=== PATIENT | female | born 1995 | race Caucasian/White ===

== ENCOUNTER 2019-07-28 18:46 | Inpatient (IN) | payer BC ==
[2019-07-28] MEDS ORDERED: Sodium Chloride 0.9% 10 ML Syringe FLUSH PRN ×2 (21:02→21:54)
[2019-07-28] MEDS ORDERED: Ondansetron 4 MG/2 ML SDV IV PRN (21:02)
[2019-07-28] MEDS ORDERED: Acetaminophen 325 MG Tab PO PRN (21:02)
--- NOTE | 2019-07-28 21:20 | PCM.LDHP ---
L&D History of Present Illness - General Date of Service: 07/28/19 Admit Problem/Dx: Patient Status Order with Admit Dx/Problem 07/28/19 21:03 Patient Status [ADT] Routine Admission Diagnosis/Problem Admission Diagnosis/Problem Source of Information: Patient History Limitations: Reports: No Limitations - Related Data Home Medications: Home Meds Ferrous Sulfate 325 mg PO DAILY 07/28/19 [History] PNV95/Ferrous Fumarate/FA [ Tablet] 1 tab PO DAILY 07/28/19 [History] H&P Review of Systems - Review of Systems: Review Of Systems: See Below General: Reports: No Symptoms HEENT: Reports: No Symptoms Pulmonary: Reports: No Symptoms Cardiovascular: Reports: No Symptoms Gastrointestinal: Reports: No Symptoms Genitourinary: Reports: No Symptoms Musculoskeletal: Reports: No Symptoms Skin: Reports: No Symptoms Psychiatric: Reports: No Symptoms Neurological: Reports: No Symptoms Hematologic/Lymphatic: Reports: No Symptoms Immunologic: Reports: No Symptoms L&D Exam - Exam Exam: See Below - Vital Signs Vital Signs: Last Vital Signs Temp 37.5 C 07/28/19 19:00 Pulse 89 07/28/19 19:00 Resp 16 07/28/19 19:00 BP 110/69 07/28/19 19:00 Pulse Ox 99 07/28/19 19:00 - OB Specific Contraction Duration (sec): 30 Contraction Frequency (min): 2-4 Contraction Intensity: Mild Movement: Active Heart Tones: Present Heart Rate (FHR) Variability: Moderate (6-25 bmp) Presentation: Vertex - Tse Score Tse Score Cervix Position: Midposition Tse Score Consistency: Soft Tse Score Effacement: 51-70% Tse Score Dilation: 1-2 cm Tse Score Infant's Station: -1 ,0 Tse Score Total: 8 - Exam General: Alert, Oriented, Cooperative HEENT: PERRLA, Conjunctiva Clear, EACs Clear, EOMI, Hearing Intact, Mucosa Moist & [place], Nares Patent, Normal Nasal Septum, Posterior Pharynx Clear, TMs Clear Neck: Supple, Trachea Midline Lungs: Clear to Auscultation, Normal Respiratory Effort Cardiovascular: Regular Rate, Regular Rhythm GI/Abdominal Exam: Normal Bowel Sounds, Soft, Non-Tender, No Organomegaly, No Distention, No Abnormal Bruit, No Mass, Pelvis Stable Rectal Exam: Normal Exam, Normal Rectal Tone Genitourinary: Normal external exam, Normal bimanual exam, Normal speculum exam , Cervical dilitation Back Exam: Normal Inspection, Full Range of Motion Extremities: Normal Inspection, Normal Range of Motion, Non-Tender, No Pedal Edema, Normal Capillary Refill Skin: Warm, Dry, Intact Neurological: Cranial Nerves Intact, Reflexes Equal Bilateral DTR: 2+: Patella (L), Patella (R) Psychiatric: Alert, Normal Affect, Normal Mood - Patient Data Lab Results Last 24 hrs: Laboratory Results - last 24 hr 07/28/19 07/28/19 Range/Units 19:30 19:31 Urine Color Yellow (YELLOW) Urine Appearance Cloudy A (CLEAR) Urine pH 7.0 (5.0-8.0) Ur Specific [place] 1.020 (1.008-1.030) Urine Protein Trace H (NEGATIVE) mg/dL Urine Glucose (UA) Negative (NEGATIVE) mg/dL Urine Ketones 15 H (NEGATIVE) mg/dL Urine Occult Blood Negative (NEGATIVE) Urine Nitrite Negative (NEGATIVE) Urine Bilirubin Negative (NEGATIVE) Urine Urobilinogen 0.2 (0.2-1.0) EU/dL Ur Leukocyte Esterase Trace H (NEGATIVE) Urine RBC 0-5 (0-5) Urine WBC 5-10 H (0-5) Ur Epithelial Cells Many Amorphous Sediment Few Urine Bacteria Many Urine Mucus Few Membrane Rupture Negative (NEGATIVE) - Problem List (1) SNOMED Code(s): 85788473 ICD Code: Z34.90 - ENCNTR FOR SUPRVSN OF NORMAL , UNSP, UNSP TRIMESTER Status: Acute Current Visit: Yes Qualifiers: Weeks of gestation: 39 weeks Qualified Code(s): Z3A.39 - 39 weeks gestation of (2) SROM (spontaneous rupture of membranes) SNOMED Code(s): 520382939 ICD Code: [id number] - Status: Acute Current Visit: Yes Problem List Initiated/Reviewed/Updated: Yes Orders Last 24hrs: Active Orders 24 hr Category Date Time Status Patient Status [ADT] Routine ADT 07/28/19 21:03 Ordered Ambulate [RC] PER UNIT ROUTINE Care 07/28/19 21:02 Ordered Communication Order [RC] ASDIRECTED Care 07/28/19 21:03 Ordered Heart Tones [RC] PER UNIT ROUTINE Care 07/28/19 21:03 Ordered Non Stress Test [RC] Click to Edit Care 07/28/19 21:03 Ordered Notify Provider Vital Signs [RC] PRN Care 07/28/19 21:02 Ordered Notify Provider [RC] PRN Care 07/28/19 21:03 Ordered OB Check [OM.PC] Click to Edit Care 07/28/19 19:30 Ordered Up ad Milli [RC] ASDIRECTED Care 07/28/19 21:02 Ordered VTE/DVT Education [RC] Click to Edit Care 07/28/19 21:07 Ordered Vital Signs [RC] PER UNIT ROUTINE Care 07/28/19 21:03 Ordered CBC WITH AUTO DIFF [HEME] Routine Lab 07/28/19 21:02 Ordered DRUG SCREEN, URINE [URCHEM] Routine Lab 07/28/19 21:02 Ordered Acetaminophen [Tylenol] Med 07/28/19 21:02 Ordered 650 mg PO Q4H PRN Ondansetron [Zofran] Med 07/28/19 21:02 Ordered 4 mg IV Q4H PRN Sodium Chloride 0.9% [Saline Flush] Med 07/28/19 21:02 Ordered 10 ml FLUSH ASDIRECTED PRN DVT/VTE Prophylaxis Reflex [OM.PC] Routine Oth 07/28/19 21:02 Ordered Saline Lock Insert [OM.PC] Routine Oth 07/28/19 21:03 Ordered Resuscitation Status Routine Resus Stat 07/28/19 21:02 Ordered Medication Orders Acetaminophen (Tylenol) 650 mg PO Q4H PRN PRN Reason: Pain (Mild 1-3) and fever Ondansetron HCl (Zofran) 4 mg IV Q4H PRN PRN Reason: Nausea/Vomiting Sodium Chloride (Saline Flush) 10 ml FLUSH ASDIRECTED PRN PRN Reason: Keep Vein Open Assessment/Plan Comment:: 07/28/2019 24 yo here at 39 4/7 weeks gestation She believes around 1545 that she had a gush of fluid, and then again around 1845 so she came in to labor and delivery Amnisure on arrival was negative, but she was denita very regular SVE-2-3/75/-1 FHTs category one Contractions every 2-3 minutes and getting stronger Plan- Will admit Continue to monitor for active labor Continue to monitor FHTs May eat a regular diet May be up ad milli May tub bath or shower Pain management per patient request If no progress may start Pitocin per protocol Plan and anticipate a vaginal delivery
[2019-07-28] MEDS ORDERED: Misoprostol 50 MCG (1/2 of 100 MCG) Tab VAG ONE (21:47)
[2019-07-28] MEDS ORDERED: Misoprostol 50 MCG (1/2 of 100 MCG) Tab ONE (21:49)
[2019-07-28] MEDS ORDERED: Naloxone 0.4 MG/ML SDV IVPUSH PRN (21:54)
[2019-07-28] MEDS ORDERED: Lactated Ringers 1,000 ML IV ONE (21:54)
[2019-07-28] MEDS ORDERED: diphenhydrAMINE 50 MG/ML SDV IVPUSH PRN ×2 (21:54)
[2019-07-28] MEDS ORDERED: ePHEDrine 50 MG/ML SDV IVPUSH PRN ×2 (21:54)
[2019-07-28] MEDS ORDERED: Ropivacaine 200 MG in Premix Bag 1 BAG EPIDUR SCH (22:00)
[2019-07-29] MEDS ORDERED: Lactated Ringers 500 ML IV ONE (01:26)
[2019-07-29] MEDS ORDERED: Lactated Ringers 1,000 ML IV SCH (02:15)
[2019-07-29] MEDS ORDERED: Lidocaine 1% 50 ML MDV ONE (05:03)
--- NOTE | 2019-07-29 05:09 | PCM.PNLD ---
Labor Progress Note - VS & Meds Vital Signs: Last Vital Signs Temp 36.8 C 07/29/19 04:47 Pulse 61 07/29/19 04:47 Resp 18 07/29/19 04:47 BP 119/61 07/29/19 04:47 Pulse Ox 99 07/29/19 04:47 Active Medications: Current Medications Acetaminophen (Tylenol) 650 mg PO Q4H PRN PRN Reason: Pain (Mild 1-3) and fever Diphenhydramine HCl (Benadryl) 25 mg IVPUSH Q6H PRN PRN Reason: Itching Diphenhydramine HCl (Benadryl) 50 mg IVPUSH Q6H PRN PRN Reason: Itching Ephedrine Sulfate (Ephedrine Sulfate) 10 mg IVPUSH ASDIRECTED PRN PRN Reason: Hypotension Ropivacaine 200 mg/ Premix 100 mls @ 0 mls/hr EPIDUR ASDIRECTED FLORINDA Oxytocin/Sodium Chloride (Pitocin In Ns 20 Units/1,000 Ml) 20 unit in 1,000 mls @ 6 mls/hr IV TITRATE FLORINDA; Protocol Lactated Ringer's (Ringers, Lactated) 1,000 mls @ 100 mls/hr IV ASDIRECTED FLORINDA Last Admin: 07/29/19 02:00 Dose: 100 mls/hr Naloxone HCl (Narcan) 0.1 mg IVPUSH ASDIRECTED PRN PRN Reason: Oversedation Ondansetron HCl (Zofran) 4 mg IV Q4H PRN PRN Reason: Nausea/Vomiting Sodium Chloride (Saline Flush) 10 ml FLUSH ASDIRECTED PRN PRN Reason: Keep Vein Open Sodium Chloride (Saline Flush) 10 ml FLUSH ASDIRECTED PRN PRN Reason: Keep Vein Open Discontinued Medications Ephedrine Sulfate (Ephedrine Sulfate) 10 mg IVPUSH ASDIRECTED PRN PRN Reason: Hypotension Lactated Ringer's (Ringers, Lactated) 1,000 mls @ 999 mls/hr IV .BOLUS ONE Stop: 07/28/19 22:54 Lactated Ringer's (Ringers, Lactated) 500 mls @ 999 mls/hr IV BOLUS ONE Stop: 07/29/19 01:56 Last Admin: 07/29/19 01:30 Dose: 999 mls/hr Lidocaine HCl (Xylocaine 1%) Confirm Administered Dose 50 ml .ROUTE .STK-MED ONE Stop: 07/29/19 05:04 Misoprostol (Cytotec) 50 mcg VAG ONETIME ONE Stop: 07/28/19 21:48 Last Admin: 07/28/19 21:50 Dose: 50 mcg Misoprostol (Cytotec) Confirm Administered Dose 50 mcg .ROUTE .STK-MED ONE Stop: 07/28/19 21:50 Last Admin: 07/28/19 21:53 Dose: Not Given - Uterine Contractions Uterine Monitoring Mode: External [place] Contraction Frequency (min): 1-2 Contraction Duration (sec): 50-80 Contraction Intensity: Moderate to Strong Uterine Resting Tone: Soft - Monitoring Heart Rate (FHR) Variability: Moderate (6-25 bmp) - Vaginal Exam Dilation (cm): 7-8 Effacement (Percent): 90 Cervical Position: Anterior Sterile Vaginal Exam Performed By: Angelita Cotton - Labor Progress (Free Text) Labor Progress: 07/29/2019 Patient has progressed nicely SVE-7-8/90/-1 FHTs category one Pain controlled with tub, position change, and nitrous at this time supportive and at bedside Plan- Continue to monitor labor Continue to monitor FHTs Continue nitrous and position change for pain management Plan and anticipate a vaginal
[2019-07-29] MEDS ORDERED: fentaNYL 100 MCG/2 ML SDV IVPUSH STA (06:30)
[2019-07-29] MEDS ORDERED: Hydrocortisone 2.5% Crm 30 GM Tube TOP PRN (06:48)
[2019-07-29] MEDS ORDERED: Benzocaine 20% Top Spray 56 GM Bottle TOP ONE (06:48)
[2019-07-29] MEDS ORDERED: Ibuprofen 200 MG Tab, 24 Tab Bulk Bottle PO PRN (06:48)
[2019-07-29] MEDS ORDERED: Acetaminophen 325 MG Tab, 50 Tab Bulk Bottle PO PRN (06:48)
[2019-07-29] MEDS ORDERED: Witch Hazel Medicated Pads 100/Jar TOP PRN (06:48)
[2019-07-29] MEDS ORDERED: Lanolin 100% Cream 40 GM Tube TOP PRN (06:48)
[2019-07-29] MEDS ORDERED: Docusate Sodium 100 MG Cap PO PRN (06:48)
--- NOTE | 2019-07-29 07:40 | PCM.DEL ---
L & D Note - General Info Date of Service: 07/29/19 - Delivery Note Labor: Spontaneous Cervical Ripening Method: Misoprostil Delivery Outcome: Livebirth Infant Delivery Method: Spontaneous Vaginal Delivery-Single Delivery Mode: Spontaneous Presentation: Left Occiput Anterior (MARIUSZ) Nuchal Cord: None Anesthesia Type: Nitrous Oxide Amniotic Fluid Description: scant amount seen during delivery Episiotomy Type: None Laceration: None, Other (small torn skin tag on left vaginal intriotus area) Placenta: Intact, Spontaneous Cord: 3 Vessels Estimated Blood Loss: 350 Resuscitation Needed: No : Bulb Syringe, Stimulated, Warmed, [place] Used Second Stage Interventions: Reports: Second Nurse Assessed Progress of Descent, Second Nurse Reviewed Contraction Pattern, Second Nurse Reviewed Heart Tones, Encouragement Given, Laboring Down, Pushing Effectively, Pushing, Knee Chest Position, Pushing, McRobert's Position Delivery Comments (Free Text/Narrative):: 07/29/2019 24 yo delivered a viable male at 39 5/7 weeks gestation in MARIUSZ position at 0622 on 07/29/2019 over an intact perineum. was then placed up on mothers abdomen on prewarmed blanket. Infant was dried, stimulated, and began to cry vigorously and pink in color. APGARS-9/9, weight-8lbs 8oz, length- 20 inches. Delayed cord clamping was done for approximately two minutes and then cord was double clamped by provider and father of infant cut the cord. Placenta then came intact, in dirty [place] presentation, three vessel cord, EBL- 350ml. No lacerations were noted of cervix, vagina, rectum, small skin tag was slightly skid nenita torn by the left vaginal introitus, but no other lacerations noted of the perineum. now skin to skin with mother and both stable in the labor and delivery room. Stages- [id number] - General Info Date of Service: 07/29/19 Functional Status: Reports: Pain Controlled - Review of Systems General: Reports: No Symptoms HEENT: Reports: No Symptoms Pulmonary: Reports: No Symptoms Cardiovascular: Reports: No Symptoms Gastrointestinal: Reports: No Symptoms Genitourinary: Reports: No Symptoms Musculoskeletal: Reports: No Symptoms Skin: Reports: No Symptoms Neurological: Reports: No Symptoms Psychiatric: Reports: No Symptoms - Patient Data Vitals - Most Recent: Last Vital Signs Temp 37.1 C 07/29/19 06:45 Pulse 71 07/29/19 06:45 Resp 18 07/29/19 06:45 BP 118/47 L 07/29/19 06:45 Pulse Ox 98 07/29/19 06:45 Weight - Most Recent: 74.389 kg Lab Results Last 24 Hours: Laboratory Results - last 24 hr 07/28/19 07/28/19 07/28/19 Range/Units 19:30 19:31 21:02 WBC 9.7 (4.5-11.0) K/uL RBC 4.36 (3.30-5.50) M/uL Hgb 13.4 (12.0-15.0) g/dL Hct 41.3 (36.0-48.0) % MCV 95 (80-98) fL MCH 31 (27-31) pg MCHC 32 (32-36) % Plt Count 193 (150-400) K/uL Neut % (Auto) 69 H (36-66) % Lymph % (Auto) 22 L (24-44) % [place] % (Auto) 9 H (2-6) % Eos % (Auto) 0 L (2-4) % Baso % (Auto) 0 (0-1) % Urine Color Yellow (YELLOW) Urine Appearance Cloudy A (CLEAR) Urine pH 7.0 (5.0-8.0) Ur Specific [place] 1.020 (1.008-1.030) Urine Protein Trace H (NEGATIVE) mg/dL Urine Glucose (UA) Negative (NEGATIVE) mg/dL Urine Ketones 15 H (NEGATIVE) mg/dL Urine Occult Blood Negative (NEGATIVE) Urine Nitrite Negative (NEGATIVE) Urine Bilirubin Negative (NEGATIVE) Urine Urobilinogen 0.2 (0.2-1.0) EU/dL Ur Leukocyte Esterase Trace H (NEGATIVE) Urine RBC 0-5 (0-5) Urine WBC 5-10 H (0-5) Ur Epithelial Cells Many Amorphous Sediment Few Urine Bacteria Many Urine Mucus Few Membrane Rupture Negative (NEGATIVE) Urine Opiates Screen (NEGATIVE) Ur Oxycodone Screen (NEGATIVE) Urine Methadone Screen (NEGATIVE) Ur Propoxyphene Screen (NEGATIVE) Ur Barbiturates Screen (NEGATIVE) Ur Tricyclics Screen (NEGATIVE) Ur Phencyclidine Scrn (NEGATIVE) Ur Amphetamine Screen (NEGATIVE) U Methamphetamines Scrn (NEGATIVE) Urine MDMA Screen (NEGATIVE) U Benzodiazepines Scrn (NEGATIVE) U Cocaine Metab Screen (NEGATIVE) U Marijuana (THC) Screen (NEGATIVE) 07/28/19 Range/Units 21:02 WBC (4.5-11.0) K/uL RBC (3.30-5.50) M/uL Hgb (12.0-15.0) g/dL Hct (36.0-48.0) % MCV (80-98) fL MCH (27-31) pg MCHC (32-36) % Plt Count (150-400) K/uL Neut % (Auto) (36-66) % Lymph % (Auto) (24-44) % [place] % (Auto) (2-6) % Eos % (Auto) (2-4) % Baso % (Auto) (0-1) % Urine Color (YELLOW) Urine Appearance (CLEAR) Urine pH (5.0-8.0) Ur Specific [place] (1.008-1.030) Urine Protein (NEGATIVE) mg/dL Urine Glucose (UA) (NEGATIVE) mg/dL Urine Ketones (NEGATIVE) mg/dL Urine Occult Blood (NEGATIVE) Urine Nitrite (NEGATIVE) Urine Bilirubin (NEGATIVE) Urine Urobilinogen (0.2-1.0) EU/dL Ur Leukocyte Esterase (NEGATIVE) Urine RBC (0-5) Urine WBC (0-5) Ur Epithelial Cells Amorphous Sediment Urine Bacteria Urine Mucus Membrane Rupture (NEGATIVE) Urine Opiates Screen Negative (NEGATIVE) Ur Oxycodone Screen Negative (NEGATIVE) Urine Methadone Screen Negative (NEGATIVE) Ur Propoxyphene Screen Negative (NEGATIVE) Ur Barbiturates Screen Negative (NEGATIVE) Ur Tricyclics Screen Negative (NEGATIVE) Ur Phencyclidine Scrn Negative (NEGATIVE) Ur Amphetamine Screen Negative (NEGATIVE) U Methamphetamines Scrn Negative (NEGATIVE) Urine MDMA Screen Negative (NEGATIVE) U Benzodiazepines Scrn Negative (NEGATIVE) U Cocaine Metab Screen Negative (NEGATIVE) U Marijuana (THC) Screen Negative (NEGATIVE) Med Orders - Current: Current Medications Acetaminophen (Tylenol) 650 mg PO Q4H PRN PRN Reason: Pain (Mild 1-3) and fever Acetaminophen (Tylenol Bulk Bottle) 0 mg PO Q4H PRN PRN Reason: Pain Diphenhydramine HCl (Benadryl) 25 mg IVPUSH Q6H PRN PRN Reason: Itching Diphenhydramine HCl (Benadryl) 50 mg IVPUSH Q6H PRN PRN Reason: Itching Docusate Sodium (Colace) 100 mg PO BID PRN PRN Reason: Constipation Emollient Ointment (Lansinoh Hpa) 40 gm TOP ASDIRECTED PRN PRN Reason: Pain Ephedrine Sulfate (Ephedrine Sulfate) 10 mg IVPUSH ASDIRECTED PRN PRN Reason: Hypotension Hydrocortisone (Hydrocortisone 2.5% Crm) 1 gm TOP ASDIRECTED PRN PRN Reason: Other Ropivacaine 200 mg/ Premix 100 mls @ 0 mls/hr EPIDUR ASDIRECTED FLORINDA Oxytocin/Sodium Chloride (Pitocin In Ns 20 Units/1,000 Ml) 20 unit in 1,000 mls @ 6 mls/hr IV TITRATE FLORINDA; Protocol Last Admin: 07/29/19 06:36 Dose: 999 mls/hr Lactated Ringer's (Ringers, Lactated) 1,000 mls @ 100 mls/hr IV ASDIRECTED FLORINDA Last Admin: 07/29/19 02:00 Dose: 100 mls/hr Ibuprofen (Motrin Bulk Bottle) 600 mg PO Q6H PRN PRN Reason: Pain Naloxone HCl (Narcan) 0.1 mg IVPUSH ASDIRECTED PRN PRN Reason: Oversedation Ondansetron HCl (Zofran) 4 mg IV Q4H PRN PRN Reason: Nausea/Vomiting Sodium Chloride (Saline Flush) 10 ml FLUSH ASDIRECTED PRN PRN Reason: Keep Vein Open Sodium Chloride (Saline Flush) 10 ml FLUSH ASDIRECTED PRN PRN Reason: Keep Vein Open Witch Mikala (Tucks) 1 pad TOP ASDIRECTED PRN PRN Reason: Pain Discontinued Medications Benzocaine (Yscf-M-Jerpbrr 20% [place]) 0 gm TOP ONETIME ONE Stop: 07/29/19 06:49 Ephedrine Sulfate (Ephedrine Sulfate) 10 mg IVPUSH ASDIRECTED PRN PRN Reason: Hypotension Fentanyl (Sublimaze) 50 mcg IVPUSH ONETIME STA Stop: 07/29/19 06:31 Last Admin: 07/29/19 06:36 Dose: 50 mcg Lactated Ringer's (Ringers, Lactated) 1,000 mls @ 999 mls/hr IV .BOLUS ONE Stop: 07/28/19 22:54 Last Admin: 07/29/19 07:29 Dose: Not Given Lactated Ringer's (Ringers, Lactated) 500 mls @ 999 mls/hr IV BOLUS ONE Stop: 07/29/19 01:56 Last Admin: 07/29/19 01:30 Dose: 999 mls/hr Lidocaine HCl (Xylocaine 1%) Confirm Administered Dose 50 ml .ROUTE .STK-MED ONE Stop: 07/29/19 05:04 Last Admin: 07/29/19 07:29 Dose: Not Given Misoprostol (Cytotec) 50 mcg VAG ONETIME ONE Stop: 07/28/19 21:48 Last Admin: 07/28/19 21:50 Dose: 50 mcg Misoprostol (Cytotec) Confirm Administered Dose 50 mcg .ROUTE .STK-MED ONE Stop: 07/28/19 21:50 Last Admin: 07/28/19 21:53 Dose: Not Given - Exam General: Alert, Oriented, Cooperative HEENT: Pupils Equal, Pupils Reactive, EOMI, Mucous Membr. Moist/[place] Neck: Supple Lungs: Clear to Auscultation, Normal Respiratory Effort Cardiovascular: Regular Rate, Regular Rhythm GI/Abdominal Exam: Normal Bowel Sounds, Soft, Non-Tender, No Organomegaly, No Distention, No Abnormal Bruit, No Mass, Pelvis Stable (Female) Exam: Normal External Exam, Normal Speculum Exam, Normal Bimanual Exam, Enlarged Uterus, Vaginal Bleeding Back Exam: Normal Inspection, Full Range of Motion Extremities: Normal Inspection, Normal Range of Motion, Non-Tender, No Pedal Edema, Normal Capillary Refill Skin: Warm, Dry, Intact Neurological: No New Focal Deficit Psy/Mental Status: Alert, Normal Affect, Normal Mood - Problem List & Annotations (1) SNOMED Code(s): 99910051 Code(s): Z34.90 - ENCNTR FOR SUPRVSN OF NORMAL , UNSP, UNSP TRIMESTER Status: Acute Current Visit: Yes Qualifiers: Weeks of gestation: 39 weeks Qualified Code(s): Z3A.39 - 39 weeks gestation of (2) SROM (spontaneous rupture of membranes) SNOMED Code(s): 954673682 Code(s): QHD3160 - Status: Acute Current Visit: Yes (3) (infant) SNOMED Code(s): 503175847 Code(s): Z78.9 - OTHER SPECIFIED HEALTH STATUS Status: Acute Current Visit: Yes (4) Prolonged artificial rupture of membranes SNOMED Code(s): 804973425, 132648966 Code(s): O75.5 - DELAYED DELIVERY AFTER ARTIFICIAL RUPTURE OF MEMBRANES Status: Acute Current Visit: Yes (5) Vaginal delivery SNOMED Code(s): 703050493 Code(s): O80 - ENCOUNTER FOR FULL-TERM UNCOMPLICATED DELIVERY Status: Acute Current Visit: Yes - Problem List Review Problem List Initiated/Reviewed/Updated: Yes - My Orders Last 24 Hours: My Active Orders 07/28/19 19:30 OB Check [OM.PC] Click to Edit 07/28/19 21:02 Ambulate [RC] PER UNIT ROUTINE Notify Provider Vital Signs [RC] PRN Up ad [place] [RC] ASDIRECTED Acetaminophen [Tylenol] 650 mg PO Q4H PRN Ondansetron [Zofran] 4 mg IV Q4H PRN Sodium Chloride 0.9% [Saline Flush] 10 ml FLUSH ASDIRECTED PRN DVT/VTE Prophylaxis Reflex [OM.PC] Routine Resuscitation Status Routine 07/28/19 21:03 Patient Status [ADT] Routine Heart Tones [RC] PER UNIT ROUTINE Notify Provider [RC] PRN Vital Signs [RC] PER UNIT ROUTINE Saline Lock Insert [OM.PC] Routine 07/28/19 21:07 VTE/DVT Education [RC] Click to Edit 07/28/19 21:54 Naloxone [Narcan] 0.1 mg IVPUSH ASDIRECTED PRN Sodium Chloride 0.9% [Saline Flush] 10 ml FLUSH ASDIRECTED PRN diphenhydrAMINE [Benadryl] 25 mg IVPUSH Q6H PRN diphenhydrAMINE [Benadryl] 50 mg IVPUSH Q6H PRN ePHEDrine [ePHEDrine sulfate] 10 mg IVPUSH ASDIRECTED PRN 07/28/19 21:55 Communication Order [RC] Per Unit Routine Communication Order [RC] Per Unit Routine Communication Order [RC] Per Unit Routine Communication Order [RC] Per Unit Routine Communication Order [RC] ROUTINE Communication Order [RC] ROUTINE Local Anesthetic Infusion Pump [RC] ASDIRECTED Nitrous Oxide Delivery [RC] ASDIRECTED Oxygen Therapy [RC] ASDIRECTED Oxygen Therapy [RC] ASDIRECTED Peripheral IV Care [RC] . DIRECTED Pulse Oximetry [RC] ASDIRECTED Pulse Oximetry [RC] ASDIRECTED Vital Signs [RC] PER UNIT ROUTINE Vital Signs [RC] PER UNIT ROUTINE Epidural Catheter Management [OM.PC] Routine Epidural Catheter Management [OM.PC] Urgent Medication Discontinuation Instructions [OM.PC] Routine Peripheral IV Insertion Pediatric [OM.PC] Routine 07/28/19 22:00 Insert Urinary Catheter [OM.PC] ASDIRECTED Oxytocin/Normal Saline [Pitocin in NS 20 Units/1,000 ML] 20 unit in 1,000 ml IV TITRATE Ropivacaine [Naropin 0.2%] 200 mg Premix Bag 1 bag EPIDUR ASDIRECTED 07/29/19 02:15 Lactated Ringers [Ringers, Lactated] 1,000 ml IV ASDIRECTED 07/29/19 06:48 Acetaminophen [Tylenol Bulk Bottle] See Dose Instructions PO Q4H PRN Docusate Sodium [Colace] 100 mg PO BID PRN Hydrocortisone [Hydrocortisone 2.5% Crm] 1 gm TOP ASDIRECTED PRN Ibuprofen [Motrin Bulk Bottle] 600 mg PO Q6H PRN Lanolin [Lansinoh HPA] 40 gm TOP ASDIRECTED PRN Witch Mikala [Tucks] 1 pad TOP ASDIRECTED PRN Assess Lochia [WOMSER] Per Unit Routine Assess Uterine Involution [WOMSER] Per Unit Routine 07/29/19 06:49 Patient Status [ADT] Routine Vital Signs [RC] PFP 07/29/19 06:57 Perineal Care [OM.PC] Per Unit Routine Sitz Bath [OM.PC] Per Unit Routine 07/29/19 06:58 Ice Therapy [OM.PC] Per Unit Routine 07/29/19 Breakfast Regular Diet [DIET] 07/30/19 06:00 CBC WITH AUTO DIFF [HEME] Routine - Assessment Assessment:: 07/29/2019 24 yo G1 now P1 without complications Labs-O positive, Hep B neg, Hep C neg, HIV neg, RPR nonreactive, Rubella Immune , GBS negative, Hgb-13.4 - Plan Plan:: 07/28/2019 24 yo here at 39 4/7 weeks gestation She believes around 1545 that she had a gush of fluid, and then again around 1845 so she came in to labor and delivery Amnisure on arrival was negative, but she was denita very regular SVE-2-/-1 FHTs category one Contractions every 2-3 minutes and getting stronger Plan- Will admit Continue to monitor for active labor Continue to monitor FHTs May eat a regular diet May be up ad jean claude May tub bath or shower Pain management per patient request If no progress may start Pitocin per protocol Plan and anticipate a vaginal delivery 07/29/2019 Routine cares Encourage and support Encourage good perineal care Encourage good hemorrhoid care Discharge in 48hrs due to unknown rupture time
--- NOTE | 2019-07-30 08:09 | PCM.PNPP ---
- General Info Date of Service: 07/30/19 Functional Status: Reports: Pain Controlled - Review of Systems General: Reports: No Symptoms HEENT: Reports: No Symptoms Pulmonary: Reports: No Symptoms Cardiovascular: Reports: No Symptoms Gastrointestinal: Reports: No Symptoms Genitourinary: Reports: No Symptoms Musculoskeletal: Reports: No Symptoms Skin: Reports: No Symptoms Neurological: Reports: No Symptoms Psychiatric: Reports: No Symptoms - General Info Date of Service: 07/30/19 - Patient Data Vital Signs - Most Recent: Last Vital Signs Temp 36.4 C 07/30/19 02:54 Pulse 78 07/29/19 21:36 Resp 16 07/30/19 02:54 BP 107/60 07/29/19 21:36 Pulse Ox 98 07/29/19 21:36 Weight - Most Recent: 74.389 kg Lab Results - Last 24 Hours: Laboratory Results - last 24 hr 07/30/19 Range/Units 06:00 WBC 12.5 H (4.5-11.0) K/uL RBC 3.51 (3.30-5.50) M/uL Hgb 10.9 L D (12.0-15.0) g/dL Hct 33.6 L (36.0-48.0) % MCV 96 (80-98) fL MCH 31 (27-31) pg MCHC 32 (32-36) % Plt Count 180 (150-400) K/uL Neut % (Auto) 70 H (36-66) % Lymph % (Auto) 19 L (24-44) % [place] % (Auto) 10 H (2-6) % Eos % (Auto) 1 L (2-4) % Baso % (Auto) 0 (0-1) % Med Orders - Current: Current Medications Acetaminophen (Tylenol) 650 mg PO Q4H PRN PRN Reason: Pain (Mild 1-3) and fever Acetaminophen (Tylenol Bulk Bottle) 0 mg PO Q4H PRN PRN Reason: Pain Last Admin: 07/29/19 07:54 Dose: 1 bottle Diphenhydramine HCl (Benadryl) 25 mg IVPUSH Q6H PRN PRN Reason: Itching Diphenhydramine HCl (Benadryl) 50 mg IVPUSH Q6H PRN PRN Reason: Itching Docusate Sodium (Colace) 100 mg PO BID PRN PRN Reason: Constipation Emollient Ointment (Lansinoh Hpa) 40 gm TOP ASDIRECTED PRN PRN Reason: Pain Last Admin: 07/29/19 07:55 Dose: 1 bottle Ephedrine Sulfate (Ephedrine Sulfate) 10 mg IVPUSH ASDIRECTED PRN PRN Reason: Hypotension Hydrocortisone (Hydrocortisone 2.5% Crm) 1 gm TOP ASDIRECTED PRN PRN Reason: Other Ibuprofen (Motrin Bulk Bottle) 600 mg PO Q6H PRN PRN Reason: Pain Last Admin: 07/29/19 07:54 Dose: 1 bottle Naloxone HCl (Narcan) 0.1 mg IVPUSH ASDIRECTED PRN PRN Reason: Oversedation Ondansetron HCl (Zofran) 4 mg IV Q4H PRN PRN Reason: Nausea/Vomiting Sodium Chloride (Saline Flush) 10 ml FLUSH ASDIRECTED PRN PRN Reason: Keep Vein Open Sodium Chloride (Saline Flush) 10 ml FLUSH ASDIRECTED PRN PRN Reason: Keep Vein Open Witch Mikala (Tucks) 1 pad TOP ASDIRECTED PRN PRN Reason: Pain Last Admin: 07/29/19 07:55 Dose: 1 bottle Discontinued Medications Benzocaine (Cmek-E-Mxnkxct 20% [place]) 0 gm TOP ONETIME ONE Stop: 07/29/19 06:49 Last Admin: 07/29/19 07:53 Dose: 1 bottle Ephedrine Sulfate (Ephedrine Sulfate) 10 mg IVPUSH ASDIRECTED PRN PRN Reason: Hypotension Fentanyl (Sublimaze) 50 mcg IVPUSH ONETIME STA Stop: 07/29/19 06:31 Last Admin: 07/29/19 06:36 Dose: 50 mcg Lactated Ringer's (Ringers, Lactated) 1,000 mls @ 999 mls/hr IV .BOLUS ONE Stop: 07/28/19 22:54 Last Admin: 07/29/19 07:29 Dose: Not Given Ropivacaine 200 mg/ Premix 100 mls @ 0 mls/hr EPIDUR ASDIRECTED FLORINDA Oxytocin/Sodium Chloride (Pitocin In Ns 20 Units/1,000 Ml) 20 unit in 1,000 mls @ 6 mls/hr IV TITRATE FLORINDA; Protocol Last Admin: 07/29/19 06:36 Dose: 999 mls/hr Lactated Ringer's (Ringers, Lactated) 500 mls @ 999 mls/hr IV BOLUS ONE Stop: 07/29/19 01:56 Last Admin: 07/29/19 01:30 Dose: 999 mls/hr Lactated Ringer's (Ringers, Lactated) 1,000 mls @ 100 mls/hr IV ASDIRECTED FLORINDA Last Admin: 07/29/19 02:00 Dose: 100 mls/hr Lidocaine HCl (Xylocaine 1%) Confirm Administered Dose 50 ml .ROUTE .STK-MED ONE Stop: 07/29/19 05:04 Last Admin: 07/29/19 07:29 Dose: Not Given Misoprostol (Cytotec) 50 mcg VAG ONETIME ONE Stop: 07/28/19 21:48 Last Admin: 07/28/19 21:50 Dose: 50 mcg Misoprostol (Cytotec) Confirm Administered Dose 50 mcg .ROUTE .STK-MED ONE Stop: 07/28/19 21:50 Last Admin: 07/28/19 21:53 Dose: Not Given - Interaction Disposition, : [place] in Room with Family Interaction: Holding Infant Feeding: Breastfed ; Nursed Well Support Person: - Recovery Exam Fundal Tone: Firm Fundal Level: 1 Fingerbreadths Below Umbilicus Fundal Placement: Midline Lochia Amount: Moderate Lochia Color: Rubra/Red Perineum Description: Intact, Minimal Bruising/Swelling Episiotomy/Laceration: None Bladder Status: Voiding Urinary Elimination: Voided - Exam General: Alert, Oriented, Cooperative HEENT: Pupils Equal, Pupils Reactive, EOMI, Mucous Membr. Moist/[place] Neck: Supple Lungs: Clear to Auscultation, Normal Respiratory Effort Cardiovascular: Regular Rate, Regular Rhythm GI/Abdominal Exam: Normal Bowel Sounds, Soft, Non-Tender, No Organomegaly, No Distention, No Abnormal Bruit, No Mass, Pelvis Stable Extremities: Normal Inspection, Normal Range of Motion, Non-Tender, No Pedal Edema, Normal Capillary Refill Skin: Warm, Dry, Intact Neurological: No New Focal Deficit Psy/Mental Status: Alert, Normal Affect, Normal Mood - Problem List & Annotations (1) SNOMED Code(s): 45251666 Code(s): Z34.90 - ENCNTR FOR SUPRVSN OF NORMAL , UNSP, UNSP TRIMESTER Status: Acute Current Visit: Yes Qualifiers: Weeks of gestation: 39 weeks Qualified Code(s): Z3A.39 - 39 weeks gestation of (2) SROM (spontaneous rupture of membranes) SNOMED Code(s): 040395596 Code(s): HWL4260 - Status: Acute Current Visit: Yes (3) () SNOMED Code(s): 751797650 Code(s): Z78.9 - OTHER SPECIFIED HEALTH STATUS Status: Acute Current Visit: Yes (4) Prolonged artificial rupture of membranes SNOMED Code(s): 959788823, 550993748 Code(s): O75.5 - DELAYED DELIVERY AFTER ARTIFICIAL RUPTURE OF MEMBRANES Status: Acute Current Visit: Yes (5) Vaginal delivery SNOMED Code(s): 923993217 Code(s): O80 - ENCOUNTER FOR FULL-TERM UNCOMPLICATED DELIVERY Status: Acute Current Visit: Yes - Problem List Review Problem List Initiated/Reviewed/Updated: Yes - My Orders Last 24 Hours: My Active Orders 07/29/19 Breakfast Regular Diet [DIET] - Assessment Assessment:: 07/29/2019 24 yo G1 now P1 without complications Labs-O positive, Hep B neg, Hep C neg, HIV neg, RPR nonreactive, Rubella Immune , GBS negative, Hgb-13.4 07/30/2019 day one well Fundus firm and bleeding decreasing Voiding and passing gas Discharge home tomorrow - Plan Plan:: 07/28/2019 24 yo here at 39 4/7 weeks gestation She believes around 1545 that she had a gush of fluid, and then again around 1845 so she came in to labor and delivery Amnisure on arrival was negative, but she was denita very regular SVE-2-3//-1 FHTs category one Contractions every 2-3 minutes and getting stronger Plan- Will admit Continue to monitor for active labor Continue to monitor FHTs May eat a regular diet May be up ad jean claude May tub bath or shower Pain management per patient request If no progress may start Pitocin per protocol Plan and anticipate a vaginal delivery 07/29/2019 Routine cares Encourage and support Encourage good perineal care Encourage good hemorrhoid care Discharge in 48hrs due to unknown rupture time 07/30/2019 Continue routine cares Continue to encourage and support Continue to encourage good perineal care Continue to encourage good hemorrhoid care Discharge in 48hrs due to unknown rupture time
--- NOTE | 2019-07-31 09:48 | PCM.PNPP ---
- General Info Date of Service: 07/31/19 (PPD 2 D/C) Admission Dx/Problem (Free Text): Patient Status Order with Admit Dx/Problem 07/28/19 21:03 Patient Status [ADT] Routine Admission Diagnosis/Problem Admission Diagnosis/Problem Functional Status: Reports: Pain Controlled - Review of Systems General: Reports: No Symptoms HEENT: Reports: No Symptoms Pulmonary: Reports: No Symptoms Cardiovascular: Reports: No Symptoms Gastrointestinal: Reports: No Symptoms Genitourinary: Reports: No Symptoms Musculoskeletal: Reports: No Symptoms Skin: Reports: No Symptoms Neurological: Reports: No Symptoms Psychiatric: Reports: No Symptoms - General Info Date of Service: 07/31/19 - Patient Data Vital Signs - Most Recent: Last Vital Signs Temp 97.6 F 07/31/19 07:00 Pulse 61 07/31/19 07:00 Resp 16 07/31/19 07:00 BP 112/64 07/31/19 07:00 Pulse Ox 98 07/31/19 07:00 Weight - Most Recent: 163 lb 15.995 oz Med Orders - Current: Current Medications Acetaminophen (Tylenol) 650 mg PO Q4H PRN PRN Reason: Pain (Mild 1-3) and fever Acetaminophen (Tylenol Bulk Bottle) 0 mg PO Q4H PRN PRN Reason: Pain Last Admin: 07/29/19 07:54 Dose: 1 bottle Diphenhydramine HCl (Benadryl) 25 mg IVPUSH Q6H PRN PRN Reason: Itching Diphenhydramine HCl (Benadryl) 50 mg IVPUSH Q6H PRN PRN Reason: Itching Docusate Sodium (Colace) 100 mg PO BID PRN PRN Reason: Constipation Emollient Ointment (Lansinoh Hpa) 40 gm TOP ASDIRECTED PRN PRN Reason: Pain Last Admin: 07/29/19 07:55 Dose: 1 bottle Ephedrine Sulfate (Ephedrine Sulfate) 10 mg IVPUSH ASDIRECTED PRN PRN Reason: Hypotension Hydrocortisone (Hydrocortisone 2.5% Crm) 1 gm TOP ASDIRECTED PRN PRN Reason: Other Ibuprofen (Motrin Bulk Bottle) 600 mg PO Q6H PRN PRN Reason: Pain Last Admin: 07/29/19 07:54 Dose: 1 bottle Naloxone HCl (Narcan) 0.1 mg IVPUSH ASDIRECTED PRN PRN Reason: Oversedation Ondansetron HCl (Zofran) 4 mg IV Q4H PRN PRN Reason: Nausea/Vomiting Sodium Chloride (Saline Flush) 10 ml FLUSH ASDIRECTED PRN PRN Reason: Keep Vein Open Sodium Chloride (Saline Flush) 10 ml FLUSH ASDIRECTED PRN PRN Reason: Keep Vein Open Witlis Worthyel (Tucks) 1 pad TOP ASDIRECTED PRN PRN Reason: Pain Last Admin: 07/29/19 07:55 Dose: 1 bottle Discontinued Medications Benzocaine (Bxtr-P-Dmeeitj 20% [place]) 0 gm TOP ONETIME ONE Stop: 07/29/19 06:49 Last Admin: 07/29/19 07:53 Dose: 1 bottle Ephedrine Sulfate (Ephedrine Sulfate) 10 mg IVPUSH ASDIRECTED PRN PRN Reason: Hypotension Fentanyl (Sublimaze) 50 mcg IVPUSH ONETIME STA Stop: 07/29/19 06:31 Last Admin: 07/29/19 06:36 Dose: 50 mcg Lactated Ringer's (Ringers, Lactated) 1,000 mls @ 999 mls/hr IV .BOLUS ONE Stop: 07/28/19 22:54 Last Admin: 07/29/19 07:29 Dose: Not Given Ropivacaine 200 mg/ Premix 100 mls @ 0 mls/hr EPIDUR ASDIRECTED FLORINDA Oxytocin/Sodium Chloride (Pitocin In Ns 20 Units/1,000 Ml) 20 unit in 1,000 mls @ 6 mls/hr IV TITRATE FLORINDA; Protocol Last Admin: 07/29/19 06:36 Dose: 999 mls/hr Lactated Ringer's (Ringers, Lactated) 500 mls @ 999 mls/hr IV BOLUS ONE Stop: 07/29/19 01:56 Last Admin: 07/29/19 01:30 Dose: 999 mls/hr Lactated Ringer's (Ringers, Lactated) 1,000 mls @ 100 mls/hr IV ASDIRECTED FLORINDA Last Admin: 07/29/19 02:00 Dose: 100 mls/hr Lidocaine HCl (Xylocaine 1%) Confirm Administered Dose 50 ml .ROUTE .STK-MED ONE Stop: 07/29/19 05:04 Last Admin: 07/29/19 07:29 Dose: Not Given Misoprostol (Cytotec) 50 mcg VAG ONETIME ONE Stop: 07/28/19 21:48 Last Admin: 07/28/19 21:50 Dose: 50 mcg Misoprostol (Cytotec) Confirm Administered Dose 50 mcg .ROUTE .STK-MED ONE Stop: 07/28/19 21:50 Last Admin: 07/28/19 21:53 Dose: Not Given - Interaction Infant Disposition, : in Room with Family Interaction: Holding Infant Feeding: Breastfed Infant; Nursed Well Support Person: - Recovery Exam Fundal Tone: Firm Fundal Level: 1 Fingerbreadths Below Umbilicus Fundal Placement: Midline Lochia Amount: Small Lochia Color: Rubra/Red Perineum Description: Intact, Minimal Bruising/Swelling Episiotomy/Laceration: None Bladder Status: Voiding Urinary Elimination: Voided - Exam General: Alert, Oriented HEENT: Pupils Equal, Pupils Reactive, EOMI, Mucous Membr. Moist/[place] Lungs: Clear to Auscultation, Normal Respiratory Effort Cardiovascular: Regular Rate, Regular Rhythm GI/Abdominal Exam: Normal Bowel Sounds, Soft, Non-Tender Extremities: Normal Inspection, No Pedal Edema Skin: Warm, Dry, Intact Wound/Incisions: Healing Well Neurological: No New Focal Deficit Psy/Mental Status: Alert, Normal Affect, Normal Mood - Problem List & Annotations (1) () SNOMED Code(s): 930974108 Code(s): Z78.9 - OTHER SPECIFIED HEALTH STATUS Status: Acute Current Visit: Yes (2) Vaginal delivery SNOMED Code(s): 990003600 Code(s): O80 - ENCOUNTER FOR FULL-TERM UNCOMPLICATED DELIVERY Status: Acute Current Visit: Yes (3) Prolonged artificial rupture of membranes SNOMED Code(s): 520806050, 139494284 Code(s): O75.5 - DELAYED DELIVERY AFTER ARTIFICIAL RUPTURE OF MEMBRANES Status: Acute Current Visit: Yes (4) SNOMED Code(s): 54826447 Code(s): Z34.90 - ENCNTR FOR SUPRVSN OF NORMAL , UNSP, UNSP TRIMESTER Status: Acute Current Visit: Yes Qualifiers: Weeks of gestation: 39 weeks Qualified Code(s): Z3A.39 - 39 weeks gestation of (5) SROM (spontaneous rupture of membranes) SNOMED Code(s): 410592930 Code(s): NGS1714 - Status: Acute Current Visit: Yes - Problem List Review Problem List Initiated/Reviewed/Updated: Yes - Assessment Assessment:: 07/29/2019 24 yo G1 now P1 without complications Labs-O positive, Hep B neg, Hep C neg, HIV neg, RPR nonreactive, Rubella Immune , GBS negative, Hgb-13.4 07/30/2019 day one well Fundus firm and bleeding decreasing Voiding and passing gas Discharge home tomorrow 07/31/19 Feels well, happy well, nipples tender but normal for post voiding without problems flow light, mild cramps Wants to go home, has good support system. - Plan Plan:: 07/28/2019 24 yo here at 39 4/7 weeks gestation She believes around 1545 that she had a gush of fluid, and then again around 1845 so she came in to labor and delivery Amnisure on arrival was negative, but she was denita very regular SVE-2-3/75/-1 FHTs category one Contractions every 2-3 minutes and getting stronger Plan- Will admit Continue to monitor for active labor Continue to monitor FHTs May eat a regular diet May be up ad jean claude May tub bath or shower Pain management per patient request If no progress may start Pitocin per protocol Plan and anticipate a vaginal delivery 07/29/2019 Routine cares Encourage and support Encourage good perineal care Encourage good hemorrhoid care Discharge in 48hrs due to unknown rupture time 07/30/2019 Continue routine cares Continue to encourage and support Continue to encourage good perineal care Continue to encourage good hemorrhoid care Discharge in 48hrs due to unknown rupture time 07/31/19 Home today See Clare Cotton CNM in 6 weeks, appointment made. reviewed the first two weeks at home and what to expect.
== END 2019-07-31 12:00 | disposition home or self-care (01) | DRG 560 ==
LOC: JP.OBCHECK 18:46 → JP.OB 21:00 → OBSVTOIN 07-29 06:22 → JP.MS 07-29 06:44
PROVIDERS: ADMIT Advanced Practice Midwife; ATTEND Advanced Practice Midwife
PROC: 10E0XZZ Delivery of Products of Conception, External Approach (ICD-10-PCS; principal; 2019-07-29)
PROC: 3E0P7VZ Introduction of Hormone into Female Reproductive, Via Natural or Artificial Opening (ICD-10-PCS; 2019-07-29)
DX: O99.72 Diseases of the skin and subcutaneous tissue complicating childbirth (principal); L91.8 Other hypertrophic disorders of the skin; Z3A.39 39 weeks gestation of pregnancy; Z37.0 Single live birth; Z79.899 Other long term (current) drug therapy
CPT/HCPCS: 36415; 59409; 80305-QW; 81001; 84112; 85025; 88307; 99211; A9270-GY; J2590; J3010; J7120

== ENCOUNTER 2021-04-18 23:32 | Inpatient (IN) | payer BC ==
[2021-04-19] MEDS ORDERED: Sodium Chloride 0.9% 10 ML Syringe FLUSH PRN ×2 (00:15→08:04)
[2021-04-19] MEDS ORDERED: Misoprostol 50 MCG (1/2 of 100 MCG) Tab VAG ONE (07:33)
--- NOTE | 2021-04-19 08:21 | PCM.LDHP ---
L&D History of Present Illness - General Date of Service: 04/19/21 Admit Problem/Dx: Patient Status Order with Admit Dx/Problem 04/19/21 00:14 Admission Status [Patient Status] [ADT] Routine Admission Diagnosis/Problem Admission Diagnosis/Problem Labor established - History of Present Illness Location, : Reports: Abdomen Quality: Reports: Pressure Severity: Moderate Improves with: Reports: Movement - Related Data Allergies/Adverse Reactions: Allergies Allergy/AdvReac Type Severity Reaction Status Date / Time No Known Allergies Allergy Verified 04/18/21 23:40 Home Medications: Home Meds Pnv No.95/Ferrous Fum/Folic AC [ Tablet] 1 tab PO DAILY 07/28/19 [History] 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 (See Below) Other OB/BYN History: cyst removed from left breast Musculoskeletal History: Reports: None - Past Surgical History Musculoskeletal Surgical History: Reports: Shoulder Surgery Other Musculoskeletal Surgeries/Procedures:: right shoulder surgery Social & Family History - Family History Family Medical History: No Pertinent Family History - Tobacco Use Tobacco Use Status *Q: Never Tobacco User - Caffeine Use Caffeine Use: Reports: Coffee - Recreational Drug Use Recreational Drug Use: No H&P Review of Systems - Review of Systems: Review Of Systems: See Below General: Reports: No Symptoms HEENT: Reports: No Symptoms Pulmonary: Reports: No Symptoms Cardiovascular: Reports: No Symptoms Gastrointestinal: Reports: Abdominal Pain Genitourinary: Reports: No Symptoms Musculoskeletal: Reports: No Symptoms Skin: Reports: No Symptoms Psychiatric: Reports: No Symptoms Neurological: Reports: No Symptoms Hematologic/Lymphatic: Reports: No Symptoms Immunologic: Reports: No Symptoms L&D Exam - Exam Exam: See Below - Vital Signs Vital Signs: Last Vital Signs Temp 36.7 C 04/19/21 07:03 Pulse 89 04/19/21 07:03 Resp 16 04/19/21 07:03 BP 115/75 04/19/21 07:03 Pulse Ox 100 04/19/21 07:03 Weight: 73.936 kg - OB Specific Contraction Duration (sec): 50-60 Contraction Frequency (min): 3-4 Contraction Intensity: Mild to Moderate Movement: Active Heart Tones: Present Heart Rate (FHR) Variability: Moderate (6-25 bmp) Presentation: Vertex Estimated Weight: 3800 - Tse Score Tse Score Cervix Position: Posterior Tse Score Consistency: Soft Tse Score Effacement: >80% Tse Score Dilation: 1-2 cm Tse Score 's Station: -1 ,0 Tse Score Total: 8 - Exam General: Alert, Oriented, Cooperative HEENT: PERRLA, Conjunctiva Clear, EACs Clear, EOMI, Hearing Intact, Mucosa Moist & [place], Nares Patent, Normal Nasal Septum, Posterior Pharynx Clear, Pupils Equal, Pupils Reactive, TMs Clear Neck: Supple, Trachea Midline Lungs: Clear to Auscultation, Normal Respiratory Effort Cardiovascular: Regular Rate, Regular Rhythm GI/Abdominal Exam: Normal Bowel Sounds, Soft, Non-Tender, No Organomegaly, No Distention, No Abnormal Bruit, No Mass, Pelvis Stable Rectal Exam: Normal Exam, Normal Rectal Tone, Hemorrhoids Genitourinary: Normal external exam, Normal bimanual exam, Cervical dilitation Back Exam: Normal Inspection, Full Range of Motion Extremities: Normal Inspection, Normal Range of Motion, Non-Tender, No Pedal Edema, Normal Capillary Refill Skin: Warm, Dry, Intact Neurological: Cranial Nerves Intact, Reflexes Equal Bilateral DTR: 2+: Patella (L), Patella (R) Psychiatric: Alert, Normal Affect, Normal Mood - Patient Data Lab Results Last 24 hrs: Laboratory Results - last 24 hr 04/18/21 04/19/21 04/19/21 Range/Units 23:38 00:15 00:18 WBC 6.5 (4.5-11.0) K/uL RBC 3.71 (3.30-5.50) M/uL Hgb 10.7 L (12.0-15.0) g/dL Hct 33.8 L (36.0-48.0) % MCV 91 (80-98) fL MCH 29 (27-31) pg MCHC 32 (32-36) % Plt Count 224 (150-400) K/uL Sodium (140-148) mmol/L Potassium (3.6-5.2) mmol/L Chloride (100-108) mmol/L Carbon Dioxide (21-32) mmol/L Anion Gap (5.0-14.0) mmol/L BUN (7-18) mg/dL Creatinine (0.6-1.0) mg/dL Est Cr Clr Drug Dosing mL/min Estimated GFR (MDRD) (>60) Glucose (74-106) mg/dL Calcium (8.5-10.1) mg/dL Total Bilirubin (0.2-1.0) mg/dL AST (15-37) U/L ALT (12-78) U/L Alkaline Phosphatase (46-116) U/L Total Protein (6.4-8.2) g/dL Albumin (3.4-5.0) g/dL Globulin (2.3-3.5) g/dL Albumin/Globulin Ratio (1.2-2.2) Urine Color Yellow (YELLOW) Urine Appearance Clear (CLEAR) Urine pH 7.0 (5.0-8.0) Ur Specific [place] 1.015 (1.008-1.030) Urine Protein Negative (NEGATIVE) mg/dL Urine Glucose (UA) Negative (NEGATIVE) mg/dL Urine Ketones Negative (NEGATIVE) mg/dL Urine Occult Blood Negative (NEGATIVE) Urine Nitrite Negative (NEGATIVE) Urine Bilirubin Negative (NEGATIVE) Urine Urobilinogen 0.2 (0.2-1.0) EU/dL Ur Leukocyte Esterase Small H (NEGATIVE) Urine RBC 0-5 (0-5) Urine WBC 0-5 (0-5) Ur Epithelial Cells Many Amorphous Sediment Not seen Urine Bacteria Many Urine Mucus Moderate Urine Opiates Screen Negative (NEGATIVE) Ur Oxycodone Screen Negative (NEGATIVE) Urine Methadone Screen Negative (NEGATIVE) Ur Propoxyphene Screen Negative (NEGATIVE) Ur Barbiturates Screen Negative (NEGATIVE) Ur Tricyclics Screen Negative (NEGATIVE) Ur Phencyclidine Scrn Negative (NEGATIVE) Ur Amphetamine Screen Negative (NEGATIVE) U Methamphetamines Scrn Negative (NEGATIVE) Urine MDMA Screen Negative (NEGATIVE) U Benzodiazepines Scrn Negative (NEGATIVE) U Cocaine Metab Screen Negative (NEGATIVE) U Marijuana (THC) Screen Negative (NEGATIVE) SARS CoV-2 RNA Rapid DAVE 04/19/21 04/19/21 Range/Units 05:37 07:29 WBC (4.5-11.0) K/uL RBC (3.30-5.50) M/uL Hgb (12.0-15.0) g/dL Hct (36.0-48.0) % MCV (80-98) fL MCH (27-31) pg MCHC (32-36) % Plt Count (150-400) K/uL Sodium 138 L (140-148) mmol/L Potassium 4.1 (3.6-5.2) mmol/L Chloride 103 (100-108) mmol/L Carbon Dioxide 22 (21-32) mmol/L Anion Gap 17.1 H (5.0-14.0) mmol/L BUN 11 (7-18) mg/dL Creatinine 0.6 (0.6-1.0) mg/dL Est Cr Clr Drug Dosing 122.69 mL/min Estimated GFR (MDRD) > 60 (>60) Glucose 78 (74-106) mg/dL Calcium 8.3 L (8.5-10.1) mg/dL Total Bilirubin 0.3 (0.2-1.0) mg/dL AST 20 (15-37) U/L ALT 19 (12-78) U/L Alkaline Phosphatase 162 H (46-116) U/L Total Protein 6.2 L (6.4-8.2) g/dL Albumin 2.6 L (3.4-5.0) g/dL Globulin 3.6 H (2.3-3.5) g/dL Albumin/Globulin Ratio 0.7 L (1.2-2.2) Urine Color (YELLOW) Urine Appearance (CLEAR) Urine pH (5.0-8.0) Ur Specific [place] (1.008-1.030) Urine Protein (NEGATIVE) mg/dL Urine Glucose (UA) (NEGATIVE) mg/dL Urine Ketones (NEGATIVE) mg/dL Urine Occult Blood (NEGATIVE) Urine Nitrite (NEGATIVE) Urine Bilirubin (NEGATIVE) Urine Urobilinogen (0.2-1.0) EU/dL Ur Leukocyte Esterase (NEGATIVE) Urine RBC (0-5) Urine WBC (0-5) Ur Epithelial Cells Amorphous Sediment Urine Bacteria Urine Mucus Urine Opiates Screen (NEGATIVE) Ur Oxycodone Screen (NEGATIVE) Urine Methadone Screen (NEGATIVE) Ur Propoxyphene Screen (NEGATIVE) Ur Barbiturates Screen (NEGATIVE) Ur Tricyclics Screen (NEGATIVE) Ur Phencyclidine Scrn (NEGATIVE) Ur Amphetamine Screen (NEGATIVE) U Methamphetamines Scrn (NEGATIVE) Urine MDMA Screen (NEGATIVE) U Benzodiazepines Scrn (NEGATIVE) U Cocaine Metab Screen (NEGATIVE) U Marijuana (THC) Screen (NEGATIVE) SARS CoV-2 RNA Rapid DAVE Negative Result Diagrams: 04/19/21 00:15 04/19/21 07:29 - Problem List (1) SNOMED Code(s): 88498355 ICD Code: Z34.90 - ENCNTR FOR SUPRVSN OF NORMAL , UNSP, UNSP TRIMESTER Status: Acute Current Visit: Yes Qualifiers: Weeks of gestation: 38 weeks Qualified Code(s): Z3A.38 - 38 weeks gestation of (2) Placental problem affecting second SNOMED Code(s): 650610779, 371962312 ICD Code: O43.90 - UNSPECIFIED PLACENTAL DISORDER, UNSPECIFIED TRIMESTER Status: Acute Current Visit: Yes (3) Personal history of COVID-19 SNOMED Code(s): 079438188491182592, 481053759896921781 ICD Code: Z86.16 - PERSONAL HISTORY OF COVID-19 Status: Acute Current Visit: Yes (4) Prolonged latent phase of labor SNOMED Code(s): 723269246 ICD Code: O63.0 - PROLONGED FIRST STAGE (OF LABOR) Status: Acute Current Visit: Yes Problem List Initiated/Reviewed/Updated: Yes Orders Last 24hrs: Active Orders 24 hr Category Date Time Status Admission Status [Patient Status] [ADT] Routine ADT 04/19/21 00:14 Active Ambulate [RC] PER UNIT ROUTINE Care 04/19/21 08:04 Ordered Communication Order [RC] ASDIRECTED Care 04/19/21 08:07 Ordered Communication Order [RC] Per Unit Routine Care 04/19/21 08:07 Ordered Communication Order [RC] Per Unit Routine Care 04/19/21 08:07 Ordered Communication Order [RC] Per Unit Routine Care 04/19/21 08:07 Ordered Communication Order [RC] Per Unit Routine Care 04/19/21 08:07 Ordered Heart Tones [RC] PER UNIT ROUTINE Care 04/19/21 08:07 Ordered Non Stress Test [RC] Click to Edit Care 04/19/21 08:07 Ordered Nitrous Oxide Delivery [RC] ASDIRECTED Care 04/19/21 08:07 Ordered Notify Provider Vital Signs [RC] PRN Care 04/19/21 08:04 Ordered Notify Provider [RC] PRN Care 04/19/21 08:07 Ordered Oxygen Therapy [RC] ASDIRECTED Care 04/19/21 08:07 Ordered Pulse Oximetry [RC] ASDIRECTED Care 04/19/21 08:07 Ordered Up ad Milli [RC] ASDIRECTED Care 04/19/21 08:04 Ordered VTE/DVT Education [RC] Click to Edit Care 04/19/21 08:09 Ordered Verify Patient Consent Obtain [RC] ASDIRECTED Care 04/19/21 08:07 Ordered Vital Signs [RC] PER UNIT ROUTINE Care 04/19/21 08:07 Ordered Vital Signs [RC] PER UNIT ROUTINE Care 04/19/21 08:07 Ordered BPP wo NST [US] Routine Exams 04/19/21 03:47 Taken OB Ltd 1 or More Fetus [US] Routine Exams 04/19/21 04:43 Taken TYPE AND SCREEN [BBK] Urgent Lab 04/19/21 07:29 Ordered Sodium Chloride 0.9% [Saline Flush] Med 04/19/21 00:15 Active 10 ml FLUSH ASDIRECTED PRN Sodium Chloride 0.9% [Saline Flush] Med 04/19/21 08:04 Ordered 10 ml FLUSH ASDIRECTED PRN DVT/VTE Prophylaxis Reflex [OM.PC] Routine Oth 04/19/21 08:04 Ordered Medication Discontinuation Instructions [OM.PC] Routine Oth 04/19/21 08:07 Ordered Saline Lock Insert [OM.PC] Routine Oth 04/19/21 00:15 Ordered Saline Lock Insert [OM.PC] Routine Oth 04/19/21 08:07 Ordered Resuscitation Status Routine Resus Stat 04/19/21 08:04 Ordered Medication Orders Sodium Chloride (Sodium Chloride 0.9% 10 Ml Syringe) 10 ml FLUSH ASDIRECTED PRN PRN Reason: Keep Vein Open Sodium Chloride (Sodium Chloride 0.9% 10 Ml Syringe) 10 ml FLUSH ASDIRECTED PRN PRN Reason: Keep Vein Open Assessment/Plan Comment:: 04/19/2021 25 yo here at 38 1/7 weeks gestation Labs-O positive, Hep B neg, Hep C neg, HIV neg, RPR nonreactive, GBS negative, COVID negative She started laboring yesterday evening. Was not dilated in clinic yesterday. Came in around midnight last night complaining of painful contractions and some abdominal pain inbetween. Throughout the night the pain did go away in between but still contractions that awoken her and irritability with poor resting tone inbetween. Patient had COVID 19 in , has a suspected macrosomia fetus measuring two weeks ahead and today [id number] grams. SVE-1-2/80/-1 now after denita most of night Prolonged latent labor Grade three placenta BPP 8/8 Occasional variable noted on FHTs but recovers with movement of patient Did consult with partners and decision made to offer augmentation to patient. Patient and spouse were educated on risks and benefits of augmentation today, were also offered more monitoring options such as returning twice a week for BPP and NST. Patient and spouse decided to have augmentation after risks and benefits were explained. All questions answered. Cytotec 50 mcg placed vaginally at 0800 Plan- Monitor labor Monitor FHTs Patient may be up ad milli after Cytotec Patient may eat regular diet Pain management per patient request Plan and anticipate a vaginal delivery
[2021-04-19] MEDS ORDERED: Sodium Chloride 0.9% 1,000 ML IV ONE (09:09)
--- NOTE | 2021-04-19 09:29 | PCM.PNLD ---
Labor Progress Note - VS & Meds Vital Signs: Last Vital Signs Temp 36.7 C 04/19/21 07:03 Pulse 89 04/19/21 07:03 Resp 16 04/19/21 07:03 BP 115/75 04/19/21 07:03 Pulse Ox 100 04/19/21 07:03 Active Medications: Current Medications Sodium Chloride (Normal Saline) 1,000 mls @ 999 mls/hr IV .BOLUS ONE Stop: 04/19/21 10:09 Last Admin: 04/19/21 09:17 Dose: 999 mls/hr Documented by: Sodium Chloride (Sodium Chloride 0.9% 10 Ml Syringe) 10 ml FLUSH ASDIRECTED PRN PRN Reason: Keep Vein Open Sodium Chloride (Sodium Chloride 0.9% 10 Ml Syringe) 10 ml FLUSH ASDIRECTED PRN PRN Reason: Keep Vein Open Discontinued Medications Misoprostol (Misoprostol 50 Mcg (1/2 Of 100 Mcg) Tab) 50 mcg VAG ONETIME ONE Stop: 04/19/21 07:34 Last Admin: 04/19/21 07:55 Dose: 50 mcg Documented by: - Uterine Contractions Uterine Monitoring Mode: External [place] Contraction Frequency (min): 2.5-8 Contraction Duration (sec): 40-60 Contraction Intensity: Mild to Moderate Uterine Resting Tone: Soft - Monitoring Heart Rate (FHR) Variability: Moderate (6-25 bmp) - Vaginal Exam Dilation (cm): 2 Effacement (Percent): 75-80 Station: -1 Cervical Position: Posterior Sterile Vaginal Exam Performed By: Angelita Cotton Vaginal Exam Comment: provider notified - Labor Progress (Free Text) Labor Progress: 04/19/2021 Called over to patient room by RN for occasional late decels. Initiation of IV fluid bolus and left tilt and fetus recovered and now FHTs category one. Contractions getting regular, patient states she feels them at bedside and supportive Plan- Continue to monitor labor Continue to monitor FHTS Continue IV fluid bolus Once NST reactive can get up and be up ad jean claude Patient can get in tub for comfort Plan and anticipate a vaginal delivery
--- NOTE | 2021-04-19 14:04 | US ---
BPP wo NST, OB Ltd 1 or More Fetus INDICATION: Latent labor COMPARISON: September 2020 FINDINGS: Single live IUP in: Cephalic position. heart rate: 149 BPM. Biophysical profile score: 8/8. MARTI: 16.8 cm. IMPRESSION: Normal biophysical profile score of 8/8. OB Ltd 1 or More Fetus CLINICAL HISTORY: Latent labor FINDINGS: There is a single viable intrauterine in cephalic position. Placenta is posterior. It is grade 2 - 3. There is spontaneous motion. heart rate is 1 49 bpm. Amniotic fluid index is 16.8. Cervix is not visualized. IMPRESSION: Single viable intrauterine at 38 weeks 4 days EDC is 04/29/2021 Estimated weight is 3546 g. This is in the 85th percentile by LMP
[2021-04-19] MEDS ORDERED: Lanolin 100% Cream 40 GM Tube TOP ONE (14:39)
[2021-04-19] MEDS ORDERED: Witch Hazel Medicated Pads 100/Jar TOP ONE (14:39)
[2021-04-19] MEDS ORDERED: Acetaminophen 325 MG Tab, 50 Tab Bulk Bottle PO PRN (14:39)
[2021-04-19] MEDS ORDERED: Ibuprofen 200 MG Tab, 24 Tab Bulk Bottle PO PRN (14:39)
[2021-04-19] MEDS ORDERED: Benzocaine 20% Top Spray 56 GM Bottle TOP ONE (14:39)
[2021-04-19] MEDS ORDERED: Docusate Sodium 100 MG Cap PO PRN (14:39)
--- NOTE | 2021-04-19 14:46 | PCM.PNLD ---
Labor Progress Note - VS & Meds Vital Signs: Last Vital Signs Temp 37.1 C 04/19/21 10:26 Pulse 71 04/19/21 10:26 Resp 16 04/19/21 10:26 BP 107/65 04/19/21 10:26 Pulse Ox 100 04/19/21 07:03 Active Medications: Current Medications Oxytocin/Sodium Chloride (Pitocin In Ns 20 Units/1,000 Ml) 20 unit in 1,000 mls @ 500 mls/hr IV ONETIME ONE Stop: 04/19/21 16:59 Sodium Chloride (Sodium Chloride 0.9% 10 Ml Syringe) 10 ml FLUSH ASDIRECTED PRN PRN Reason: Keep Vein Open Sodium Chloride (Sodium Chloride 0.9% 10 Ml Syringe) 10 ml FLUSH ASDIRECTED PRN PRN Reason: Keep Vein Open Discontinued Medications Sodium Chloride (Normal Saline) 1,000 mls @ 999 mls/hr IV .BOLUS ONE Stop: 04/19/21 10:09 Last Admin: 04/19/21 09:17 Dose: 999 mls/hr Documented by: Misoprostol (Misoprostol 50 Mcg (1/2 Of 100 Mcg) Tab) 50 mcg VAG ONETIME ONE Stop: 04/19/21 07:34 Last Admin: 04/19/21 07:55 Dose: 50 mcg Documented by: - Uterine Contractions Uterine Monitoring Mode: External [place] Contraction Frequency (min): 1-2 Contraction Duration (sec): 50-100 Contraction Intensity: Mild to Moderate Uterine Resting Tone: Soft - Monitoring Heart Rate (FHR) Variability: Moderate (6-25 bmp) - Vaginal Exam Dilation (cm): 6 Effacement (Percent): 90 Station: -1 Cervical Position: Midposition Sterile Vaginal Exam Performed By: Angelita Cotton - Labor Progress (Free Text) Labor Progress: 04/19/2021 Patient out of tub Nitrous used for SVE SVE-/-1 Education done on AROM risks and benefits Patient agrees to plan of care and verbalizes understanding of plan of care AROM per clear fluid Contractions every 1-2.5 minutes and strong FHTs category one Plan- Continue to monitor labor Continue to monitor FHTs Continue nitrous and position change for pain management Plan and anticipate a vaginal delivery
--- NOTE | 2021-04-19 16:41 | PCM.DEL ---
L & D Note - General Info Date of Service: 04/19/21 Mother's Due Date: 05/01/21 - Delivery Note Cervical Ripening Method: Misoprostil (augmented) Delivery Outcome: Livebirth Infant Delivery Method: Spontaneous Vaginal Delivery-Single Delivery Mode: Spontaneous Presentation: Left Occiput Anterior (MARIUSZ) Nuchal Cord: Present, Reduced Anesthesia Type: Nitrous Oxide Amniotic Fluid Description: Clear Episiotomy Type: None Laceration: None Placenta: Intact, Spontaneous Cord: 3 Vessels Estimated Blood Loss: 350 Resuscitation Needed: No [place]: Bulb Syringe, Stimulated, [place] Used Provider: Angelita Cotton Score 1 min: 9 Score 5 min: 9 Second Stage Interventions: Reports: Second Nurse Assessed Progress of Descent, Second Nurse Reviewed Contraction Pattern, Second Nurse Reviewed Heart Tones, Encouragement Given, Pushing Effectively, Pushing, Feet in Foot Rests, Pushing, McRobert's Position, Pushing, Pulls Own Legs Back Delivery Comments (Free Text/Narrative):: 04/19/2021 25 yo delivered a viable male at 38 1/7 weeks gestation in MARIUSZ position over an intact perineum on 04/19/2021 at 1413. Patient was using nitrous for pain control and pushed effectively with encouragement. Two large clots came before infant delivery, approximately tennis ball size. Head descended very quickly with pushing, nuchal cord noted but easily reduced. Infant was then placed on prewarmed blanket on mothers abdomen. Infant was dried, warmed and stimulated before beginning to pink in color. Delayed cord clamping was done for approximately 90 seconds, then cord was double clamped and cut by father of . was then brought to warmed to assess respiratory effort. APGARS-9/9, weight-7lbs 13oz, length-19in. then began to cry vigorously then and pink in color. was then given back to mother to do skin to skin. Placenta then came Lewis and intact. Three vessel cord, [id number]-300. No lacerations noted of vagina, rectum, perineum, or cervix. Infant and mother now stable and skin to skin in labor and delivery room. Stages of labor- 1st:[id number] 2nd:3578-4312 3rd:1323-4706 - General Info Date of Service: 04/19/21 - Review of Systems General: Reports: No Symptoms HEENT: Reports: No Symptoms Pulmonary: Reports: No Symptoms Cardiovascular: Reports: No Symptoms Gastrointestinal: Reports: No Symptoms Genitourinary: Reports: No Symptoms Musculoskeletal: Reports: No Symptoms Skin: Reports: No Symptoms Neurological: Reports: No Symptoms Psychiatric: Reports: No Symptoms - Patient Data Vitals - Most Recent: Last Vital Signs Temp 37.0 C 04/19/21 15:10 Pulse 78 04/19/21 15:30 Resp 16 04/19/21 15:30 BP 113/56 L 04/19/21 15:30 Pulse Ox 100 04/19/21 07:03 Weight - Most Recent: 73.936 kg Lab Results Last 24 Hours: Laboratory Results - last 24 hr 04/18/21 04/19/21 04/19/21 Range/Units 23:38 00:15 00:18 WBC 6.5 (4.5-11.0) K/uL RBC 3.71 (3.30-5.50) M/uL Hgb 10.7 L (12.0-15.0) g/dL Hct 33.8 L (36.0-48.0) % MCV 91 (80-98) fL MCH 29 (27-31) pg MCHC 32 (32-36) % Plt Count 224 (150-400) K/uL Sodium (140-148) mmol/L Potassium (3.6-5.2) mmol/L Chloride (100-108) mmol/L Carbon Dioxide (21-32) mmol/L Anion Gap (5.0-14.0) mmol/L BUN (7-18) mg/dL Creatinine (0.6-1.0) mg/dL Est Cr Clr Drug Dosing mL/min Estimated GFR (MDRD) (>60) Glucose (74-106) mg/dL Calcium (8.5-10.1) mg/dL Total Bilirubin (0.2-1.0) mg/dL AST (15-37) U/L ALT (12-78) U/L Alkaline Phosphatase (46-116) U/L Total Protein (6.4-8.2) g/dL Albumin (3.4-5.0) g/dL Globulin (2.3-3.5) g/dL Albumin/Globulin Ratio (1.2-2.2) Urine Color Yellow (YELLOW) Urine Appearance Clear (CLEAR) Urine pH 7.0 (5.0-8.0) Ur Specific [place] 1.015 (1.008-1.030) Urine Protein Negative (NEGATIVE) mg/dL Urine Glucose (UA) Negative (NEGATIVE) mg/dL Urine Ketones Negative (NEGATIVE) mg/dL Urine Occult Blood Negative (NEGATIVE) Urine Nitrite Negative (NEGATIVE) Urine Bilirubin Negative (NEGATIVE) Urine Urobilinogen 0.2 (0.2-1.0) EU/dL Ur Leukocyte Esterase Small H (NEGATIVE) Urine RBC 0-5 (0-5) Urine WBC 0-5 (0-5) Ur Epithelial Cells Many Amorphous Sediment Not seen Urine Bacteria Many Urine Mucus Moderate Urine Opiates Screen Negative (NEGATIVE) Ur Oxycodone Screen Negative (NEGATIVE) Urine Methadone Screen Negative (NEGATIVE) Ur Propoxyphene Screen Negative (NEGATIVE) Ur Barbiturates Screen Negative (NEGATIVE) Ur Tricyclics Screen Negative (NEGATIVE) Ur Phencyclidine Scrn Negative (NEGATIVE) Ur Amphetamine Screen Negative (NEGATIVE) U Methamphetamines Scrn Negative (NEGATIVE) Urine MDMA Screen Negative (NEGATIVE) U Benzodiazepines Scrn Negative (NEGATIVE) U Cocaine Metab Screen Negative (NEGATIVE) U Marijuana (THC) Screen Negative (NEGATIVE) SARS CoV-2 RNA Rapid DAVE Blood Type Gel Antibody Screen 04/19/21 04/19/21 04/19/21 Range/Units 05:37 07:29 07:29 WBC (4.5-11.0) K/uL RBC (3.30-5.50) M/uL Hgb (12.0-15.0) g/dL Hct (36.0-48.0) % MCV (80-98) fL MCH (27-31) pg MCHC (32-36) % Plt Count (150-400) K/uL Sodium 138 L (140-148) mmol/L Potassium 4.1 (3.6-5.2) mmol/L Chloride 103 (100-108) mmol/L Carbon Dioxide 22 (21-32) mmol/L Anion Gap 17.1 H (5.0-14.0) mmol/L BUN 11 (7-18) mg/dL Creatinine 0.6 (0.6-1.0) mg/dL Est Cr Clr Drug Dosing 122.69 mL/min Estimated GFR (MDRD) > 60 (>60) Glucose 78 (74-106) mg/dL Calcium 8.3 L (8.5-10.1) mg/dL Total Bilirubin 0.3 (0.2-1.0) mg/dL AST 20 (15-37) U/L ALT 19 (12-78) U/L Alkaline Phosphatase 162 H (46-116) U/L Total Protein 6.2 L (6.4-8.2) g/dL Albumin 2.6 L (3.4-5.0) g/dL Globulin 3.6 H (2.3-3.5) g/dL Albumin/Globulin Ratio 0.7 L (1.2-2.2) Urine Color (YELLOW) Urine Appearance (CLEAR) Urine pH (5.0-8.0) Ur Specific [place] (1.008-1.030) Urine Protein (NEGATIVE) mg/dL Urine Glucose (UA) (NEGATIVE) mg/dL Urine Ketones (NEGATIVE) mg/dL Urine Occult Blood (NEGATIVE) Urine Nitrite (NEGATIVE) Urine Bilirubin (NEGATIVE) Urine Urobilinogen (0.2-1.0) EU/dL Ur Leukocyte Esterase (NEGATIVE) Urine RBC (0-5) Urine WBC (0-5) Ur Epithelial Cells Amorphous Sediment Urine Bacteria Urine Mucus Urine Opiates Screen (NEGATIVE) Ur Oxycodone Screen (NEGATIVE) Urine Methadone Screen (NEGATIVE) Ur Propoxyphene Screen (NEGATIVE) Ur Barbiturates Screen (NEGATIVE) Ur Tricyclics Screen (NEGATIVE) Ur Phencyclidine Scrn (NEGATIVE) Ur Amphetamine Screen (NEGATIVE) U Methamphetamines Scrn (NEGATIVE) Urine MDMA Screen (NEGATIVE) U Benzodiazepines Scrn (NEGATIVE) U Cocaine Metab Screen (NEGATIVE) U Marijuana (THC) Screen (NEGATIVE) SARS CoV-2 RNA Rapid DAVE Negative Blood Type O POSITIVE Gel Antibody Screen Negative Med Orders - Current: Current Medications Acetaminophen (Acetaminophen 325 Mg Tab, 50 Tab Bulk Bottle) 325 - 650 mg PO Q4 H PRN PRN Reason: Pain Last Admin: 04/19/21 15:08 Dose: 650 mg Documented by: Benzocaine (Benzocaine 20% Top [place] 56 Gm Bottle) 0 gm TOP Q4H PRN PRN Reason: PAIN Last Admin: 04/19/21 15:09 Dose: 1 spray Documented by: Docusate Sodium (Docusate Sodium 100 Mg Cap) 100 mg PO BID PRN PRN Reason: Constipation Emollient Ointment (Lanolin 100% Cream 40 Gm Tube) 0 gm TOP ASDIRECTED PRN PRN Reason: NIPPLE PAIN Oxytocin/Sodium Chloride (Pitocin In Ns 20 Units/1,000 Ml) 20 unit in 1,000 mls @ 500 mls/hr IV ONETIME ONE Stop: 04/19/21 16:59 Last Admin: 04/19/21 14:16 Dose: 500 mls/hr Documented by: Ibuprofen (Ibuprofen 200 Mg Tab, 24 Tab Bulk Bottle) 600 mg PO Q6H PRN PRN Reason: Pain Last Admin: 04/19/21 15:08 Dose: 600 mg Documented by: Sodium Chloride (Sodium Chloride 0.9% 10 Ml Syringe) 10 ml FLUSH ASDIRECTED PRN PRN Reason: Keep Vein Open Sodium Chloride (Sodium Chloride 0.9% 10 Ml Syringe) 10 ml FLUSH ASDIRECTED PRN PRN Reason: Keep Vein Open Discontinued Medications Benzocaine (Benzocaine 20% Top [place] 56 Gm Bottle) 0 gm TOP ONETIME ONE Stop: 04/19/21 14:40 Last Admin: 04/19/21 15:50 Dose: Not Given Documented by: Emollient Ointment (Lanolin 100% Cream 40 Gm Tube) 0 gm TOP ONETIME ONE Stop: 04/19/21 14:40 Last Admin: 04/19/21 15:51 Dose: Not Given Documented by: Sodium Chloride (Normal Saline) 1,000 mls @ 999 mls/hr IV .BOLUS ONE Stop: 04/19/21 10:09 Last Admin: 04/19/21 09:17 Dose: 999 mls/hr Documented by: Misoprostol (Misoprostol 50 Mcg (1/2 Of 100 Mcg) Tab) 50 mcg VAG ONETIME ONE Stop: 04/19/21 07:34 Last Admin: 04/19/21 07:55 Dose: 50 mcg Documented by: Adri Bach (Adri Bach Medicated Pads 100/Jar) 1 pad TOP ONETIME ONE Stop: 04/19/21 14:40 Last Admin: 04/19/21 15:50 Dose: Not Given Documented by: - Exam General: Alert, Oriented, Cooperative HEENT: Pupils Equal, Pupils Reactive, EOMI, Mucous Membr. Moist/[place] Neck: Supple Lungs: Clear to Auscultation, Normal Respiratory Effort Cardiovascular: Regular Rate, Regular Rhythm GI/Abdominal Exam: Normal Bowel Sounds, Soft, Non-Tender, No Organomegaly, No Distention, No Abnormal Bruit, No Mass, Pelvis Stable (Female) Exam: Normal External Exam, Normal Speculum Exam, Normal Bimanual Exam, Enlarged Uterus, Vaginal Bleeding Back Exam: Normal Inspection, Full Range of Motion Extremities: Normal Inspection, Normal Range of Motion, Non-Tender, No Pedal Edema, Normal Capillary Refill Skin: Warm, Dry, Intact Neurological: No New Focal Deficit Psy/Mental Status: Alert, Normal Affect, Normal Mood - Problem List & Annotations (1) SNOMED Code(s): 61788502 Code(s): Z34.90 - ENCNTR FOR SUPRVSN OF NORMAL , UNSP, UNSP TRIMESTER Status: Acute Current Visit: Yes Qualifiers: Weeks of gestation: 38 weeks Qualified Code(s): Z3A.38 - 38 weeks gestation of (2) Placental problem affecting second SNOMED Code(s): 869580319, 253462290 Code(s): O43.90 - UNSPECIFIED PLACENTAL DISORDER, UNSPECIFIED TRIMESTER Status: Acute Current Visit: Yes (3) Personal history of COVID-19 SNOMED Code(s): 917923953101832132, 326270713542436613 Code(s): Z86.16 - PERSONAL HISTORY OF COVID-19 Status: Acute Current Visit: Yes (4) Prolonged latent phase of labor SNOMED Code(s): 783278026 Code(s): O63.0 - PROLONGED FIRST STAGE (OF LABOR) Status: Acute Current Visit: Yes (5) () SNOMED Code(s): 454396928 Code(s): Z78.9 - OTHER SPECIFIED HEALTH STATUS Status: Acute Current Visit: No (6) Vaginal delivery SNOMED Code(s): 851623056 Code(s): O80 - ENCOUNTER FOR FULL-TERM UNCOMPLICATED DELIVERY Status: Acute Current Visit: No - Problem List Review Problem List Initiated/Reviewed/Updated: Yes - My Orders Last 24 Hours: My Active Orders 04/19/21 00:14 Admission Status [Patient Status] [ADT] Routine 04/19/21 00:15 Sodium Chloride 0.9% [Saline Flush] 10 ml FLUSH ASDIRECTED PRN Saline Lock Insert [OM.PC] Routine 04/19/21 07:29 PATIENT RETYPE [BBK] Urgent TYPE AND SCREEN [BBK] Urgent 04/19/21 08:04 Ambulate [RC] PER UNIT ROUTINE Notify Provider Vital Signs [RC] PRN Up ad [place] [RC] ASDIRECTED Sodium Chloride 0.9% [Saline Flush] 10 ml FLUSH ASDIRECTED PRN DVT/VTE Prophylaxis Reflex [OM.PC] Routine Resuscitation Status Routine 04/19/21 08:07 Communication Order [RC] ASDIRECTED Communication Order [RC] Per Unit Routine Communication Order [RC] Per Unit Routine Notify Provider [RC] PRN Oxygen Therapy [RC] ASDIRECTED Pulse Oximetry [RC] ASDIRECTED Medication Discontinuation Instructions [OM.PC] Routine Saline Lock Insert [OM.PC] Routine 04/19/21 14:39 Consult to Key Ringer [CONS] Routine Acetaminophen [Tylenol Bulk Bottle] 325 - 650 mg PO Q4H PRN Docusate Sodium [Colace] 100 mg PO BID PRN Ibuprofen [Motrin Bulk Bottle] 600 mg PO Q6H PRN Assess Lochia [WOMSER] Per Unit Routine Assess Uterine Involution [WOMSER] Per Unit Routine 04/19/21 14:40 Patient Status [ADT] Routine 04/19/21 14:41 Ice Therapy [OM.PC] Per Unit Routine Perineal Care [OM.PC] Per Unit Routine Sitz Bath [OM.PC] Per Unit Routine 04/19/21 15:00 Oxytocin/Normal Saline [Pitocin in NS 20 Units/1,000 ML] 20 unit in 1,000 ml IV ONETIME 04/19/21 Dinner Regular Diet [DIET] Lanolin [Lansinoh HPA] 0 gm TOP ASDIRECTED PRN 04/19/21 18:30 Benzocaine [Ztgc-[id number] 20% [place]] 0 gm TOP Q4H PRN 04/20/21 06:00 CBC WITH AUTO DIFF [HEME] Routine - Assessment Assessment:: 04/19/2021 25 yo delivered at 38 1/7 gestational weeks without complications - Plan Plan:: 04/19/2021 25 yo here at 38 1/7 weeks gestation Labs-O positive, Hep B neg, Hep C neg, HIV neg, RPR nonreactive, GBS negative, COVID negative She started laboring yesterday evening. Was not dilated in clinic yesterday. Came in around midnight last night complaining of painful contractions and some abdominal pain inbetween. Throughout the night the pain did go away in between but still contractions that awoken her and irritability with poor resting tone inbetween. Patient had COVID 19 in , has a suspected macrosomia fetus measuring two weeks ahead and today [id number] grams. SVE-1-2/80/-1 now after denita most of night Prolonged latent labor Grade three placenta BPP 8/8 Occasional variable noted on FHTs but recovers with movement of patient Did consult with partners and decision made to offer augmentation to patient. Patient and spouse were educated on risks and benefits of augmentation today, were also offered more monitoring options such as returning twice a week for BPP and NST. Patient and spouse decided to have augmentation after risks and benefits were explained. All questions answered. Cytotec 50 mcg placed vaginally at 0800 Plan- Monitor labor Monitor FHTs Patient may be up ad jean claude after Cytotec Patient may eat regular diet Pain management per patient request Plan and anticipate a vaginal delivery 04/19/2021 Routine cares Encourage and support Discharge home in 24-48 hours
[2021-04-19] MEDS ORDERED: Lanolin 100% Cream 40 GM Tube TOP PRN (17:00)
[2021-04-19] MEDS ORDERED: Benzocaine 20% Top Spray 56 GM Bottle TOP PRN (18:30)
--- NOTE | 2021-04-20 08:13 | PCM.PNPP ---
- General Info Date of Service: 04/20/21 Admission Dx/Problem (Free Text): Patient Status Order with Admit Dx/Problem 04/19/21 00:14 Admission Status [Patient Status] [ADT] Routine Admission Diagnosis/Problem Admission Diagnosis/Problem Labor established Functional Status: Reports: Pain Controlled - Review of Systems General: Reports: No Symptoms HEENT: Reports: No Symptoms Pulmonary: Reports: No Symptoms Cardiovascular: Reports: No Symptoms Gastrointestinal: Reports: No Symptoms Genitourinary: Reports: No Symptoms Musculoskeletal: Reports: No Symptoms Skin: Reports: No Symptoms Neurological: Reports: No Symptoms Psychiatric: Reports: No Symptoms - Patient Data Vital Signs - Most Recent: Last Vital Signs Temp 94.8 F L 04/20/21 04:00 Pulse 59 L 04/20/21 04:00 Resp 18 04/20/21 04:00 BP 106/66 04/20/21 04:00 Pulse Ox 98 04/20/21 04:00 Weight - Most Recent: 163 lb Lab Results - Last 24 Hours: Laboratory Results - last 24 hr 04/19/21 04/20/21 Range/Units 07:29 05:55 WBC 8.8 (4.5-11.0) K/uL RBC 3.52 (3.30-5.50) M/uL Hgb 10.2 L (12.0-15.0) g/dL Hct 32.6 L (36.0-48.0) % MCV 93 (80-98) fL MCH 29 (27-31) pg MCHC 31 L (32-36) % Plt Count 182 (150-400) K/uL Neut % (Auto) 67.2 H (36-66) % Lymph % (Auto) 22.4 L (24-44) % Bureau % (Auto) 9.8 H (2-6) % Eos % (Auto) 0.5 L (2-4) % Baso % (Auto) 0.1 (0-1) % Blood Type O POSITIVE Gel Antibody Screen Negative Med Orders - Current: Current Medications Acetaminophen (Acetaminophen 325 Mg Tab, 50 Tab Bulk Bottle) 325 - 650 mg PO Q4H PRN PRN Reason: Pain Last Admin: 04/19/21 15:08 Dose: 650 mg Documented by: Benzocaine (Benzocaine 20% Top [place] 56 Gm Bottle) 0 gm TOP Q4H PRN PRN Reason: PAIN Last Admin: 04/19/21 15:09 Dose: 1 spray Documented by: Docusate Sodium (Docusate Sodium 100 Mg Cap) 100 mg PO BID PRN PRN Reason: Constipation Emollient Ointment (Lanolin 100% Cream 40 Gm Tube) 0 gm TOP ASDIRECTED PRN PRN Reason: NIPPLE PAIN Ibuprofen (Ibuprofen 200 Mg Tab, 24 Tab Bulk Bottle) 600 mg PO Q6H PRN PRN Reason: Pain Last Admin: 04/19/21 15:08 Dose: 600 mg Documented by: Sodium Chloride (Sodium Chloride 0.9% 10 Ml Syringe) 10 ml FLUSH ASDIRECTED PRN PRN Reason: Keep Vein Open Sodium Chloride (Sodium Chloride 0.9% 10 Ml Syringe) 10 ml FLUSH ASDIRECTED PRN PRN Reason: Keep Vein Open Discontinued Medications Benzocaine (Benzocaine 20% Top [place] 56 Gm Bottle) 0 gm TOP ONETIME ONE Stop: 04/19/21 14:40 Last Admin: 04/19/21 15:50 Dose: Not Given Documented by: Emollient Ointment (Lanolin 100% Cream 40 Gm Tube) 0 gm TOP ONETIME ONE Stop: 04/19/21 14:40 Last Admin: 04/19/21 15:51 Dose: Not Given Documented by: Sodium Chloride (Normal Saline) 1,000 mls @ 999 mls/hr IV .BOLUS ONE Stop: 04/19/21 10:09 Last Admin: 04/19/21 09:17 Dose: 999 mls/hr Documented by: Oxytocin/Sodium Chloride (Pitocin In Ns 20 Units/1,000 Ml) 20 unit in 1,000 mls @ 500 mls/hr IV ONETIME ONE Stop: 04/19/21 16:59 Last Admin: 04/19/21 14:16 Dose: 500 mls/hr Documented by: Misoprostol (Misoprostol 50 Mcg (1/2 Of 100 Mcg) Tab) 50 mcg VAG ONETIME ONE Stop: 04/19/21 07:34 Last Admin: 04/19/21 07:55 Dose: 50 mcg Documented by: Adri Bach (Adri Bach Medicated Pads 100/Jar) 1 pad TOP ONETIME ONE Stop: 04/19/21 14:40 Last Admin: 04/19/21 15:50 Dose: Not Given Documented by: - Infant Interaction Infant Disposition, : in Room with Family Interaction: Not Applicable Infant Feeding: Difficulty with Latch-on, Encouraged to Breastfeed Support Person: - Recovery Exam Fundal Tone: Firm Fundal Level: 1 Fingerbreadths Below Umbilicus Fundal Placement: Midline Lochia Amount: Small Lochia Color: Rubra/Red Perineum Description: Intact, Minimal Bruising/Swelling Episiotomy/Laceration: None Bladder Status: Voiding Urinary Elimination: Voided - Exam General: Alert, Oriented HEENT: Pupils Equal Neck: Supple Lungs: Clear to Auscultation, Normal Respiratory Effort Cardiovascular: Regular Rate, Regular Rhythm GI/Abdominal Exam: Normal Bowel Sounds, Soft, Non-Tender, No Abnormal Bruit Extremities: Normal Inspection, Normal Range of Motion, No Pedal Edema, Normal Capillary Refill Skin: Warm, Dry, Intact Wound/Incisions: Healing Well Neurological: No New Focal Deficit Psy/Mental Status: Alert, Normal Affect, Normal Mood - Problem List & Annotations (1) SNOMED Code(s): 15289414 Code(s): Z34.90 - ENCNTR FOR SUPRVSN OF NORMAL , UNSP, UNSP TRIMESTER Status: Acute Current Visit: Yes Qualifiers: Weeks of gestation: 38 weeks Qualified Code(s): Z3A.38 - 38 weeks gestation of (2) Placental problem affecting second SNOMED Code(s): 169899638, 165109881 Code(s): O43.90 - UNSPECIFIED PLACENTAL DISORDER, UNSPECIFIED TRIMESTER Status: Acute Current Visit: Yes (3) Personal history of COVID-19 SNOMED Code(s): 018645018971118917, 414151050553591037 Code(s): Z86.16 - PERSONAL HISTORY OF COVID-19 Status: Acute Current Visit: Yes (4) () SNOMED Code(s): 158887168 Code(s): Z78.9 - OTHER SPECIFIED HEALTH STATUS Status: Acute Current Visit: No (5) Vaginal delivery SNOMED Code(s): 302967775 Code(s): O80 - ENCOUNTER FOR FULL-TERM UNCOMPLICATED DELIVERY Status: Acute Current Visit: No - Problem List Review Problem List Initiated/Reviewed/Updated: Yes - Assessment Assessment:: 04/19/2021 25 yo delivered at 38 1/7 gestational weeks without complications 04/20/21 Doing great Happy no mood concerns breast soft and starting to feel quiñonez flow light, mild cramping voiding HGB 10.2 wants to go home - Plan Plan:: 04/19/2021 25 yo here at 38 1/7 weeks gestation Labs-O positive, Hep B neg, Hep C neg, HIV neg, RPR nonreactive, GBS negative, COVID negative She started laboring yesterday evening. Was not dilated in clinic yesterday. Came in around midnight last night complaining of painful contractions and some abdominal pain inbetween. Throughout the night the pain did go away in between but still contractions that awoken her and irritability with poor resting tone inbetween. Patient had COVID 19 in , has a suspected macrosomia fetus measuring two weeks ahead and today [id number] grams. SVE-1-2/80/-1 now after denita most of night Prolonged latent labor Grade three placenta BPP 8/8 Occasional variable noted on FHTs but recovers with movement of patient Did consult with partners and decision made to offer augmentation to patient. Patient and spouse were educated on risks and benefits of augmentation today, were also offered more monitoring options such as returning twice a week for BPP and NST. Patient and spouse decided to have augmentation after risks and benefits were explained. All questions answered. Cytotec 50 mcg placed vaginally at 0800 Plan- Monitor labor Monitor FHTs Patient may be up ad jean claude after Cytotec Patient may eat regular diet Pain management per patient request Plan and anticipate a vaginal delivery 04/19/2021 Routine cares Encourage and support Discharge home in 24-48 hours 04/20/21 Home today see Angelita 6 weeks for a post visit
== END 2021-04-20 16:15 | disposition home or self-care (01) | DRG 560 ==
LOC: JP.OBCHECK 23:32 → JP.OB 04-19 00:14 → OBSVTOIN 04-19 14:13 → JP.MS 04-19 16:43
PROVIDERS: ADMIT Advanced Practice Midwife; ATTEND Advanced Practice Midwife
PROC: 10E0XZZ Delivery of Products of Conception, External Approach (ICD-10-PCS; principal; 2021-04-19)
PROC: 10907ZC Drainage of Amniotic Fluid, Therapeutic from Products of Conception, Via Natural or Artificial Opening (ICD-10-PCS; 2021-04-19)
DX: O69.81X0 Labor and delivery complicated by cord around neck, without compression, not applicable or unspecified (principal); Z3A.38 38 weeks gestation of pregnancy; Z37.0 Single live birth; Z86.16 Personal history of COVID-19; Z20.822 Contact with and (suspected) exposure to COVID-19
CPT/HCPCS: 36415; 76815; 76815-26; 76819; 76819-26; 80053; 80305-QW; 81001; 85025; 85027; 86850; 86900; 86901; 99211; A9270-GY; J2590; J7030; U0002